=== PATIENT | male | born 1960 | race Caucasian/White ===

== ENCOUNTER → 2017-03-15 | Outpatient (CLI) | payer BC ==
[~2017-03-15] MED LIST: AMIT-203 PO; AMLO-114 PO; ASCA500 PO; ATOR10TA82 PO; B-COCAP2 PO; BUPR-79 PO; CLC100 PO; CYM60 PO; DYZ PO; FLV1 PO; HYDR-5688 PO; LABE1TAB28 PO; MULT-506 PO; OMEG10007 PO; POTA-335 PO; PRLSR20 PO; Sennosides PO
--- NOTE | 2017-03-15 14:17 | DIAGNOSTIC IMAGING REPORT ---
MRI THE RIGHT KNEE NO CONTRAST CLINICAL HISTORY: Right knee pain. COMPARISON STUDY: No previous studies for comparison. FINDINGS: Imaging was performed in sagittal, coronal, and axial planes. There is mild subchondral marrow edema within the patella, likely on a degenerative basis. The quadriceps and patellar tendons appear intact. There is a small joint effusion. The anterior and posterior cruciate ligaments appear intact. The medial and lateral collateral ligaments appear intact. There is a complex tear involving the posterior horn the medial meniscus with a flipped meniscal fragment. There is mild chondromalacia patella IMPRESSION: 1. Complex tear involving the posterior horn the medial meniscus with a flipped meniscal fragment 2. Mild chondromalacia patella 3. Small joint effusion 4. Normal lateral meniscus 5. No evidence of collateral ligament or cruciate ligament disruption Electronically signed by: Denzel Sarkar M.D. 03/15/2017 2:16 PM Dictated Date/Time: 03/15/2017 2:13 PM
== END | disposition home or self-care (01) ==
LOC: C.MRIBC 13:16
PROVIDERS: ATTEND Orthopaedic Surgery
DX: M25.561 Pain in right knee (principal)

== ENCOUNTER → 2017-04-03 | Day surgery (SDC) | payer BC ==
[2017-03-29 11:03] VITALS: Ht 188 cm; Wt 118.6 kg
--- NOTE | 2017-03-29 11:33 | PAT Medication Instructions ---
Service Date Mar 29, 2017. Current Home Medication List Amitriptyline HCl (Elavil), 1 TAB PO HS Amlodipine (Norvasc), 10 MG PO QPM Ascorbic Acid (Vitamin C *), 100 MG PO QAM Atorvastatin (Lipitor), 10 MG PO QAM Bupropion (Wellbutrin Sr), 150 MG PO QAM Fish Oil ([place]-3), 1 CAP PO QAM Labetalol (Normodyne), 200 MG PO BID Multivitamin (Multivitamin), 1 TAB PO QAM Omeprazole (Prilosec), 40 MG PO QPM Potassium Chloride (Micro-K Ext Rel), 20 MEQ PO BID Triamterene/Hctz (Dyazide 37.5MG/25MG *), 1 TAB PO QAM Vitamin B Cmplx/Vitc/Folic Ac (Nephrocaps), 1 CAP PO QAM Medication Instructions For Your Scheduled Surgery - Hold the following medications starting 03/30/17: Fish Oil ([place]-3), 1 CAP PO QAM - Hold the following medications the morning of surgery: Triamterene/Hctz (Dyazide 37.5MG/25MG *), 1 TAB PO QAM Vitamin B Cmplx/Vitc/Folic Ac (Nephrocaps), 1 CAP PO QAM Potassium Chloride (Micro-K Ext Rel), 20 MEQ PO BID Ascorbic Acid (Vitamin C *), 100 MG PO QAM Multivitamin (Multivitamin), 1 TAB PO QAM - Take the following medications the morning of surgery with a sip of water: Labetalol (Normodyne), 200 MG PO BID Bupropion (Wellbutrin Sr), 150 MG PO QAM Atorvastatin (Lipitor), 10 MG PO QAM - Take the following medications as scheduled the night before surgery: Omeprazole (Prilosec), 40 MG PO QPM Labetalol (Normodyne), 200 MG PO BID Amlodipine (Norvasc), 10 MG PO QPM Amitriptyline HCl (Elavil), 1 TAB PO HS If you have any questions please call us at [phone] or [phone] or [phone]
[~2017-04-03] VITALS: Ht 188 cm; Wt 118.6 kg
[~2017-04-03] MED LIST changes: -ATOR10TA82 PO; +ATOR10TA88 PO; +ATROPINE SULFATE 0.1 MG/ML 5ML SYR IV PRN; +BUPIVACAINE 0.5 % 5 MG/1 ML MPF 30ML VIAL ONE; +CEFAZOLIN 2000 MG/60 ML D5W IV SCH; -CLC100 PO; -CYM60 PO; +DEXAMETHASONE SOD INJ 4 MG/ML VIAL ONE; +EpHEDrine SULFATE INJ 50 MG/ML AMP IV PRN; +EpINEphrine INJ 1MG/ML AMP 1 MG/ML AMP ONE; +FENTANYL CITRATE INJ 50 MCG/1 ML 2 ML VIAL IV PRN; +FENTANYL CITRATE INJ 50 MCG/1 ML 2 ML VIAL ONE; +FLUMAZENIL 0.1 MG/1 ML 10 ML VIAL IV PRN; -FLV1 PO; +HYDROCODONE/ACETAMOPHEN 5/325MG TAB PO PRN; +HYDROmorphone INJ 2 MG/ML SYR/VIAL IV PRN; +KETOROLAC TROMETHAMINE 30 MG/ML VIAL ONE; +LABETALOL HCL IV 5 MG/ML 20ML IV PRN; +LACTATED RINGER'S 1000ML 1,000 ML IV SCH; +LIDOCAINE HCL 2% 2 ML VIAL (20MG/ML) ONE; +MEPERIDINE HCL 25 MG/ML CARP IV PRN; +MIDAZOLAM HCL 1 MG/ML 2ML VIAL ONE; +NALOXONE HCL 0.4 MG/1 ML VIAL/CARP IV PRN; +ONDANSETRON INJ 2 MG/ML 2 ML VIAL IV PRN; +ONDANSETRON INJ 2 MG/ML 2 ML VIAL ONE; +PHENYLEPHRINE 100MCG/ML 5ML SYR IV PRN; +PROPOFOL IV EMULSION 10 MG/ML 20 ML VIAL IV ONE; +ROPIVACAINE 0.5% 5 MG/ML 30 ML VIAL ONE; +SODIUM CHLORIDE 0.9% 1000ML 1,000 ML IV SCH; -Sennosides PO
--- NOTE | 2017-04-03 08:58 | History & Physical Bridge - [place] ---
H&P Re-Evaluation Bridge Note: I have examined the patient, reviewed the History & Physical and in the interval since the performance of the History & Physical I have noted the following changes of clinical significance: No changes noted
--- NOTE | 2017-04-03 10:05 | [facility] Post Operative Brief Note ---
Immediate Operative Summary Operative Date Apr 03, 2017. Pre-Operative Diagnosis Right knee positive Mitch and joint pain. Post-Operative Diagnosis Same as pre-op Procedure(s) Performed Right Knee Arthroscopy With Partial Medial Meniscectomy Surgeon Dr. Moreno Net Washer Surgeon(s) Jarvis OKEEFE Estimated Blood Loss ZERO Findings ABOVE Specimens None Anesthesia LMA Complication(s) None Disposition Recovery Room / PACU
--- NOTE | 2017-04-03 10:14 | Discharge Instructions-SurgCtr ---
Discharge Instructions Date of Service Apr 03, 2017. Visit Reason for Visit: Right Knee Medial Meniscus Tear Discharge Discharge Diagnosis / Problem: SAME ABOVE Discharge Goals Goal(s): Decrease discomfort, Improve function Medications Stopped Medications Name(s): fish oil stopped. last dose on 03/30 Restart Stopped Medication(s): MAY RESTART 04/03/2017 Activity Recommendations Activity Limitations: as noted below Lifting Limitations: gradually increase as tolerated Exercise/Sports Limitations: gradually increase as tolerated Shower/Bathe: tomorrow Weightbearing Status: Right weightbearing (as tolerated) Anesthesia . Post Anesthesia Instructions: If you have had General Anesthesia or IV Sedation: * Do not drive today. * Resume driving when surgeon permits. * Do not make important decisions or sign legal documents today. * Call surgeon for: 1. Temperature elevations greater than 101 degrees F. 2. Uncontrollable pain. 3. Excessive bleeding. 4. Persistent nausea and vomiting. 5. Medication intolerance (nausea, vomiting or rash). * For nausea and vomiting use only clear liquids such as: tea, soda, bouillon until nausea subsides, then gradually increase diet as tolerated. * If you have any concerns or questions, call your surgeon's office. If physician is unavailable and it is an emergency, call 911 or go to the nearest emergency room. . Instructions / Follow-Up Instructions / Follow-Up MEDICATIONS: * Resume previous medications unless instructed otherwise by your surgeon. * Always take pain medication on a full stomach or with food to avoid upset stomach. * Do not drink alcohol or drive while taking narcotics. * Ibuprofen or Tylenol may be taken if narcotic not needed. SPECIAL CARE INSTRUCTIONS: __ None _X_ Keep extremity elevated and iced x 48 hours; apply ice 20-30 minutes 8-10 times/day. May remove at night. _X_ Crutches _X_ May discard when able __ Brace/Post-op shoe __ 24 hrs/day __ Remove at night _X_ Dressing __ Maintain until seen in office, may shower with plastic over site _X_ Remove dressings in 24-48 hours and then may shower _X_ Cover incisions with band-aids after showering __ Do not remove steri-strips Call physician if chills or temperature rises above 102 degrees or pain unrelieved by prescribed pain medications. Office [phone] Diet Recommendations Home Diet: no limitations Fluid Restriction: None Procedures Procedures Performed: Right Knee Arthroscopy With Partial Medial Meniscectomy Pending Studies Studies pending at discharge: no Work Instructions Return To Work: after follow-up Medical Emergencies . Who to Call and When: Medical Emergencies: If at any time you feel your situation is an emergency, please call 911 immediately. . Non-Emergent Contact Non-Emergency issues call your: Primary Care Provider Call Non-Emergent contact if: you have a fever, temperature is above 101.5 . . "Provider Documentation" section prepared by Garret Perez. .
[2017-04-03 11:01] VITALS: TEMP 36.5
--- NOTE | 2017-04-03 11:10 | Anesthesia Progress Nt - [facility] ---
Anesthesia Post Op Note Date & Time Apr 03, 2017 at 11:10 Vital Signs Pain Intensity: 1 Vital Signs Past 12 Hours Date Time Temp Pulse Resp B/P (MAP) Pulse Ox O2 Delivery O2 Flow Rate FiO2 04/03/17 11:01 36.5 58 16 122/75 (91) 94 Room Air 04/03/17 10:43 54 12 93 04/03/17 10:43 36.5 54 12 04/03/17 10:41 114/65 04/03/17 10:38 55 9 95 04/03/17 10:38 55 9 04/03/17 10:36 103/66 04/03/17 10:33 55 9 04/03/17 10:33 55 9 96 04/03/17 10:31 112/63 04/03/17 10:28 58 9 98 04/03/17 10:28 58 9 04/03/17 10:26 106/56 04/03/17 10:23 56 12 04/03/17 10:23 56 12 97 04/03/17 10:21 105/46 04/03/17 10:18 57 11 04/03/17 10:18 57 11 95 04/03/17 10:16 105/51 04/03/17 10:13 61 04/03/17 10:13 36.2 60 16 102/57 96 Mask 6 04/03/17 10:13 61 102/57 94 04/03/17 08:38 36.5 57 20 135/82 (99) 96 Room Air Notes Mental Status: alert / awake / arousable, participated in evaluation Pt Amnestic to Procedure: Yes Nausea / Vomiting: adequately controlled Pain: adequately controlled Airway Patency, RR, SpO2: stable & adequate BP & HR: stable & adequate Hydration State: stable & adequate Anesthetic Complications: no major complications apparent
[2017-04-03 11:19] VITALS: BP 122/74; PULSE 53; O2SAT 94
== END | disposition home or self-care (01) ==
LOC: X.SURG 03-29 10:39
PROVIDERS: ATTEND Orthopaedic Surgery
DX: S83.241A Other tear of medial meniscus, current injury, right knee, initial encounter (principal); X58.XXXA Exposure to other specified factors, initial encounter; M71.21 Synovial cyst of popliteal space [Baker], right knee; I10 Essential (primary) hypertension; E78.00 Pure hypercholesterolemia, unspecified; K21.9 Gastro-esophageal reflux disease without esophagitis; F41.9 Anxiety disorder, unspecified; Z86.73 Personal history of transient ischemic attack (TIA), and cerebral infarction without residual deficits